=== PATIENT | female | born 1970 | race Caucasian/White ===

== ENCOUNTER 2016-08-29 15:18 | Emergency (ER) | payer OTHER ==
[2016-08-29 15:48] VITALS: BP 118/79; PULSE 101; TEMP 98.9; BMI 36.6
--- NOTE | 2016-08-29 17:05 | PDOC ---
History of Present Illness - General Chief Complaint: Pain Stated Complaint: TOOTHACHE Time Seen by Provider: 08/29/16 16:30 History Source: Patient Exam Limitations: No Limitations - History of Present Illness Initial Comments: CHIEF COMPLAINT: 45 y/o afebrile female with PMH HTN, DM c/o right upper tooth pain and abscess. HISTORY OF PRESENT ILLNESS: The patient states she's had swelling and tenderness to her right upper gum, just above where one of her teeth is loose. She states she is prone to dental infections because of her diabetes and has an appointment with her dentist on sunday. She is here to make sure nothing gets worse. She also admits to chills. Vital signs on arrival are notable for pulse of 101. REVIEW OF SYSTEMS: GENERAL/CONSTITUTIONAL: Subjective chills. No fever. No weakness. No weight change. HEAD, EYES, EARS, NOSE AND THROAT: No change in vision. No ear pain or discharge. No sore throat. +mouth pain and swelling SKIN: No rash or easy bruising. NEUROLOGIC: No headache, vertigo, loss of consciousness, or loss of sensation. PHYSICAL EXAM: GENERAL: The patient is awake, alert, and fully oriented, in no acute distress. She is well appearing and ambulatory. HEAD: Normal with no signs of trauma. ENT: Pupils equal, round and reactive to light, extraocular movements intact, sclera anicteric, conjunctiva clear. Neck supple. Loose upper right front tooth. Minimal swelling to upper gum on right side that is TTP but no fluctuance appreciated. EXTREMITIES: Normal range of motion, no edema. NEUROLOGICAL: Normal speech, normal gait. CN II-XII grossly intact. SKIN: Warm, dry, normal turgor, no rashes or lesions noted. Past History - Past Medical History Allergies/Adverse Reactions: Allergies Allergy/AdvReac Type Severity Reaction Status Date / Time No Known Allergies Allergy Verified 08/29/16 15:44 Home Medications: Ambulatory Orders Aspirin 81 mg PO DAILY 12/09/12 Cholecalciferol (Vitamin D3) [Vitamin D] 400 unit PO DAILY 12/09/12 Glimepiride [Amaryl] 2 mg PO BID 12/09/12 Metformin HCl [Glucophage -] 500 mg PO BID 12/09/12 Simvastatin [Zocor -] 10 mg PO HS 12/09/12 Naproxen [Naprosyn -] 500 mg PO BID PRN #14 tablet 11/14/14 Sulfamethoxazole/Trimethoprim [Bactrim Ds -] 1 tab PO BID #14 tablet 04/30/15 Amoxicillin - [Amoxicillin 500mg Capsule -] 500 mg PO TID #21 capsule 08/29/16 Cardiac Disorders: Yes (PALPITATIONS) Diabetes: Yes HTN: Yes Hypercholesterolemia: Yes - Psycho/Social/Smoking Cessation Hx Anxiety: No Suicidal Ideation: No Smoking Status: Yes Smoking History: Current every day smoker Have you smoked in the past 12 months: Yes Number of Cigarettes Smoked Daily: 10 Information on smoking cessation initiated: No Hx Alcohol Use: No Substance Use Type: None *Physical Exam - Vital Signs Last Vital Signs Temp Pulse Resp BP Pulse Ox 98.9 F 101 H 18 118/79 98 08/29/16 15:44 08/29/16 15:44 08/29/16 15:44 08/29/16 15:44 08/29/16 15:44 Medical Decision Making - Medical Decision Making A/P: 45 y/o female with possible mild gum abscess. Given her hx of tooth abscesses and diabetes will treat with Amoxicillin and discharge to home. sent rx to her pharmacy and instructed her to keep her appointment with her dentist scheduled for sunday. Instructed her to return to the ER with any worsening or concerning symptoms. The patient verbalizes understanding of all instructions, has no further questions and is awaiting discharge. *DC/Admit/Observation/Transfer Diagnosis at time of Disposition: Gingival abscess - Discharge Dispostion Disposition: HOME Condition at time of disposition: Good - Referrals Referrals: Jaden Mcfarland MD [Primary Care Provider] - - Patient Instructions Printed Discharge Instructions: Tooth Abscess Additional Instructions: Discharge Instructions: -Take amoxicillin as prescribed -Gargle with warm salt water multiple times per day -Keep your dentist appointment scheduled for Friday 09/01. -return to the ER with any worsening or concerning symptoms
[2016-08-29] MEDS ORDERED: AMOXICILLIN 500 MG CAPSULE (FP) PO ONE (17:30)
[2016-08-29] MEDS ORDERED: AMOX TR/POT CLAV 500MG/125MG TABLETS (FP) ONE (17:35)
== END 2016-08-29 17:32 | disposition home or self-care (01) ==
LOC: JERFT 15:18
DX: K04.7 Periapical abscess without sinus (principal); R00.2 Palpitations; I10 Essential (primary) hypertension; E11.9 Type 2 diabetes mellitus without complications; Z79.84 Long term (current) use of oral hypoglycemic drugs; E78.00 Pure hypercholesterolemia, unspecified; F17.210 Nicotine dependence, cigarettes, uncomplicated
CPT/HCPCS: 84703; 99281-25